=== PATIENT | female | born 2000 ===

== ENCOUNTER 2024-12-10 21:45 | Outpatient (REF) | payer OTHER, SELFPAY ==
[2024-12-10 22:00] LABS: Abs Immature Grans 0.02 10^3/uL (0.0-0.06); HCT 46.0 % (36.0-46.0); HGB 15.0 g/dL (11.2-15.7); Immature Grans % 0.3 %; MCH 28.9 pg (27.0-33.0); MCHC 32.6 % (32.0-36.0); MCV 89 fL (80-95); MPV 10.3 fL (8.0-11.0); Platelet Count 320 10^3/uL (130-400); RBC 5.19 10^6/uL (3.93-5.22); RDW 12.8 % (11.7-14.6); RDW-SD 41.6 fL; WBC 6.10 10^3/uL (4.4-10.8)
[2024-12-10 22:11] LABS: ALT 21 U/L (14-59); AST 15 U/L (15-37); Albumin 3.9 g/dL (3.4-5.0); Alkaline Phosphatase 46 U/L (46-116); Anion Gap 9.9 mmol/L (3-11); BUN 14 mg/dL (7-18); Bilirubin, Total 0.2 mg/dL (0.2-1.0); CO2 22.1 mmol/L (21.0-32.0); Calcium 8.9 mg/dL (8.5-10.1); Chloride 107 mmol/L (98-107); Estimated GFR 104.15 (mL/min/1.73m2); Glucose 85 mg/dL (74-106); Potassium 4.1 mmol/L (3.5-5.1); Sodium 139 mmol/L (136-145); Total Protein 6.9 g/dL (6.4-8.2)
== END 2024-12-10 21:46 | disposition home or self-care (01) ==
LOC: NCHCN 21:45
PROVIDERS: Visit Provider Registered Nurse Psychiatric/Mental Health
DX: R19.7 Diarrhea, unspecified (principal)
CPT/HCPCS: 80053; 85025